=== PATIENT | male | born 1995 | race American Indian/Alaskan Native ===

== ENCOUNTER 2020-03-09 06:01 | Emergency (ER) | payer OTHER ==
[2020-03-09] MEDS ORDERED: SODIUM CHLORIDE 0.9% 1000 ML 1,000 ML IV ONE ×2 (06:11→07:35)
[2020-03-09] MEDS ORDERED: levETIRAcetam 1000 MG/NS 0.75% 1,000 MG/100 ML BAG IV ONE (06:12)
--- NOTE | 2020-03-09 06:14 | Emergency Department Report ---
ED General Adult HPI - General Stated complaint: SEIZURE Time Seen by Provider: 03/09/20 06:08 - History of Present Illness Initial comments: Patient is a 25-year-old male presents emergency department for evaluation of generalized tonic-clonic seizure this morning. Patient has history of seizure disorder for which she takes Keppra. Patient denies fever, denies shortness of breath cough, no sore throat, denies abdominal pain, denies nausea vomiting diarrhea. Patient denies drug use or misuse. Patient has had injury. Patient received 2.5 Versed intranasal in route. Patient notes he has been intermittently compliant with Keppra at home. - Related Data Home Medications Medication Instructions Recorded Confirmed Last Taken levETIRAcetam [Keppra TAB] 1,500 mg PO BID 03/09/20 03/09/20 Unknown Allergies Allergy/AdvReac Type Severity Reaction Status Date / Time Penicillins Allergy Anaphylaxis Verified 03/09/20 07:23 ED Review of Systems ROS: Stated complaint: SEIZURE Other details as noted in HPI Comment: All other systems reviewed and negative ED Past Medical Hx - Past Medical History Hx Seizures: Yes - Medications Home Medications: Home Medications Medication Instructions Recorded Confirmed Last Taken Type levETIRAcetam [Keppra TAB] 1,500 mg PO BID 03/09/20 03/09/20 Unknown History ED Physical Exam - General General appearance: alert, in no apparent distress - Head Head exam: Present: atraumatic, normocephalic - Eye Eye exam: Present: normal appearance - ENT ENT exam: Present: mucous membranes moist, other (1 cm macerated/superficial laceration to left lateral tongue) - Neck Neck exam: Present: normal inspection - Respiratory Respiratory exam: Present: normal lung sounds bilaterally. Absent: respiratory distress - Cardiovascular Cardiovascular Exam: Present: regular rate, normal rhythm. Absent: systolic murmur, diastolic murmur, rubs, gallop - GI/Abdominal GI/Abdominal exam: Present: soft, normal bowel sounds - Extremities Exam Extremities exam: Present: normal inspection - Back Exam Back exam: Present: normal inspection - Neurological Exam Neurological exam: Present: alert, oriented X3 - Psychiatric Psychiatric exam: Present: normal affect, normal mood - Skin Skin exam: Present: warm, dry, intact, normal color. Absent: rash ED Course Vital Signs 03/09/20 03/09/20 03/09/20 06:15 06:30 06:45 Pulse Rate Respiratory Rate Blood Pressure 113/41 113/41 Blood Pressure [Left] O2 Sat by Pulse 93 94 94 Oximetry 03/09/20 03/09/20 03/09/20 07:15 07:30 07:45 Pulse Rate Respiratory Rate Blood Pressure 87/36 89/38 108/66 Blood Pressure [Left] O2 Sat by Pulse 97 95 96 Oximetry 03/09/20 03/09/20 03/09/20 08:00 08:15 08:30 Pulse Rate Respiratory Rate Blood Pressure 108/64 109/65 111/66 Blood Pressure [Left] O2 Sat by Pulse 97 96 96 Oximetry 03/09/20 03/09/20 03/09/20 08:45 09:00 09:15 Pulse Rate Respiratory Rate Blood Pressure 110/66 108/64 118/71 Blood Pressure [Left] O2 Sat by Pulse 98 100 98 Oximetry 03/09/20 03/09/20 09:30 09:59 Pulse Rate 89 Respiratory 18 Rate Blood Pressure 117/71 Blood Pressure 119/69 [Left] O2 Sat by Pulse 98 Oximetry - Reevaluation(s) Reevaluation #1: 03/09/20 06:14 Patient initially treated with IV normal saline and IV Keppra. Reevaluation #2: 03/09/20 08:15 Tongue laceration repair not indicated ED Medical Decision Making - Lab Data Result diagrams: 03/09/20 06:39 03/09/20 06:39 Lab Results 03/09/20 03/09/20 03/09/20 Range/Units 06:39 06:39 10:11 WBC 25.4 H (4.5-11.0) K/mm3 RBC 4.72 (3.65-5.03) M/mm3 Hgb 14.3 (11.8-15.2) gm/dl Hct 43.8 (35.5-45.6) % MCV 93 (84-94) fl MCH 30 (28-32) pg MCHC 33 (32-34) % RDW 13.0 L (13.2-15.2) % Plt Count 422 (140-440) K/mm3 Lymph % (Auto) 19.0 (13.4-35.0) % [place] % (Auto) 3.3 (0.0-7.3) % Eos % (Auto) 0.8 (0.0-4.3) % Baso % (Auto) 0.3 (0.0-1.8) % Lymph # (Auto) 4.8 (1.2-5.4) K/mm3 [place] # (Auto) 0.8 (0.0-0.8) K/mm3 Eos # (Auto) 0.2 (0.0-0.4) K/mm3 Baso # (Auto) 0.1 (0.0-0.1) K/mm3 Seg Neutrophils % 76.6 H (40.0-70.0) % Seg Neutrophils # 19.4 H (1.8-7.7) K/mm3 Sodium 138 (137-145) mmol/L Potassium 4.3 (3.6-5.0) mmol/L Chloride 99.8 (98-107) mmol/L Carbon Dioxide 15 L (22-30) mmol/L Anion Gap 28 mmol/L BUN 13 (9-20) mg/dL Creatinine 1.3 (0.8-1.3) mg/dL Estimated GFR > 60 ml/min BUN/Creatinine Ratio 10 % Glucose 353 H (75-100) mg/dL POC Glucose 105 (70-105) mg/dL Calcium 9.1 (8.4-10.2) mg/dL Vital Signs 03/09/20 03/09/20 03/09/20 06:15 06:30 06:45 Pulse Rate Respiratory Rate Blood Pressure 113/41 113/41 Blood Pressure [Left] O2 Sat by Pulse 93 94 94 Oximetry 03/09/20 03/09/20 03/09/20 07:15 07:30 07:45 Pulse Rate Respiratory Rate Blood Pressure 87/36 89/38 108/66 Blood Pressure [Left] O2 Sat by Pulse 97 95 96 Oximetry 03/09/20 03/09/20 03/09/20 08:00 08:15 08:30 Pulse Rate Respiratory Rate Blood Pressure 108/64 109/65 111/66 Blood Pressure [Left] O2 Sat by Pulse 97 96 96 Oximetry 03/09/20 03/09/20 03/09/20 08:45 09:00 09:15 Pulse Rate Respiratory Rate Blood Pressure 110/66 108/64 118/71 Blood Pressure [Left] O2 Sat by Pulse 98 100 98 Oximetry 03/09/20 03/09/20 09:30 09:59 Pulse Rate 89 Respiratory 18 Rate Blood Pressure 117/71 Blood Pressure 119/69 [Left] O2 Sat by Pulse 98 Oximetry Critical care attestation.: If time is entered above; I have spent that time in minutes in the direct care of this critically ill patient, excluding procedure time. ED Disposition Clinical Impression: Seizure, Laceration of tongue, Hyperglycemia, Noncompliance with medication regimen Disposition: TO HOME OR SELFCARE Is pt being admited?: No Condition: Stable Instructions: Hyperglycemia, [id number], Mouth Laceration, [id number], Seizure, Adult Additional Instructions: Follow-up with PMD in 1-2 days for re-evaluation. Return to the ER for fever or worsening symptoms. Referrals: [facility]IJU WALKER [Other] - 3-5 Days
[2020-03-09 07:01] LABS: Hematocrit 43.8 % (35.5-45.6); Hemoglobin 14.3 gm/dl (11.8-15.2); Mean Corpuscular HGB Conc 33 % (32-34); Mean Corpuscular Volume 93 fl (84-94); Platelet Count 422 K/mm3 (140-440); Red Blood Count 4.72 M/mm3 (3.65-5.03)
[2020-03-09 07:03] LABS: Basophils # (Auto) 0.1 K/mm3 (0.0-0.1); Basophils % (Auto) 0.3 % (0.0-1.8); Eosinophils # (Auto) 0.2 K/mm3 (0.0-0.4); Eosinophils % (Auto) 0.8 % (0.0-4.3); Lymphocytes # (Auto) 4.8 K/mm3 (1.2-5.4); Monocytes # (Auto) 0.8 K/mm3 (0.0-0.8); Monocytes % (Auto) 3.3 % (0.0-7.3)
[2020-03-09 07:23] LABS: BUN/Creatinine Ratio 10; Blood Urea Nitrogen 13 mg/dL (9-20); Calcium 9.1 mg/dL (8.4-10.2); Hemolysis Index 10
[2020-03-09] MEDS ORDERED: METOPROLOL TARTRATE 5 MG/5 ML INJ IV ONE (07:38)
[2020-03-09] MEDS ORDERED: cloNIDine 0.1 MG TAB PO ONE (07:39)
[2020-03-09] MEDS ORDERED: LIDOCAINE 1%/EPINEPHRINE 1:100,000 VIAL (20 ML) INFILTRATI NR (08:00)
--- NOTE | 2020-03-09 09:22 | XRay Report ---
CHEST 1 VIEW 0730 INDICATION / CLINICAL INFORMATION: weakness COMPARISON: None available. FINDINGS: SUPPORT DEVICES: None HEART / MEDIASTINUM: No significant abnormality. LUNGS / PLEURA: No significant pulmonary or pleural abnormality. No pneumothorax. ADDITIONAL FINDINGS: No significant additional findings. IMPRESSION: No significant acute abnormality Signer Name: Felipe Serrano MD Signed: 03/09/2020 9:17 AM Workstation Name: [id number]
[2020-03-09 11:12] VITALS: BP 118/65
== END 2020-03-09 11:12 | disposition home or self-care (01) ==
LOC: EDSEX → ED 06:01
DX: S01.512A Laceration without foreign body of oral cavity, initial encounter (principal); G40.909 Epilepsy, unspecified, not intractable, without status epilepticus; R73.9 Hyperglycemia, unspecified; Z91.14 Patient's other noncompliance with medication regimen; Z88.0 Allergy status to penicillin; X58.XXXA Exposure to other specified factors, initial encounter; Y93.89 Activity, other specified; Y92.89 Other specified places as the place of occurrence of the external cause; Y99.8 Other external cause status
CPT/HCPCS: 36415; 71045; 80048; 82962; 85025; 96361; 96365; 99284; J1953; J7030

== ENCOUNTER 2020-03-17 02:42 | Emergency (ER) | payer OTHER ==
[2020-03-17] MEDS ORDERED: SODIUM CHLORIDE 0.9% 1000 ML 1,000 ML IV ONE (03:38)
[2020-03-17 04:19] LABS: Alanine Aminotransferase 144 units/L (7-56); Albumin 4.2 g/dL (3.9-5); BUN/Creatinine Ratio 8; Blood Urea Nitrogen 12 mg/dL (9-20); Calcium 9.6 mg/dL (8.4-10.2); Hemolysis Index 7
--- NOTE | 2020-03-17 05:06 | Emergency Department Report ---
ED Seizure HPI - General Chief Complaint: Seizure Stated Complaint: SEIZURE Time Seen by Provider: 03/17/20 03:37 Source: patient, EMS Mode of arrival: Stretcher Limitations: No Limitations - History of Present Illness MD Complaint: seizure -: Gradual, Sudden Description of Episode: loss of consciousness, tonic-clonic movement -: minutes(s) (2) Witnessed:: Yes Trauma: No Seizure History: known seizure disorder Place: home Possible Precipitating Event: none Associated Symptoms: denies other symptoms Treatments Prior to Arrival: benzodiazepines - Related Data Home Medications Medication Instructions Recorded Confirmed Last Taken levETIRAcetam [Keppra TAB] 1,500 mg PO BID 03/09/20 03/09/20 Unknown Allergies Allergy/AdvReac Type Severity Reaction Status Date / Time Penicillins Allergy Anaphylaxis Verified 03/09/20 07:23 shellfish derived Allergy Anaphylaxis Verified 03/17/20 03:46 ED Review of Systems ROS: Stated complaint: SEIZURE Other details as noted in HPI Constitutional: denies: chills, fever Eyes: denies: eye pain, eye discharge, vision change ENT: denies: ear pain, throat pain Respiratory: denies: cough, shortness of breath, wheezing Cardiovascular: denies: chest pain, palpitations Endocrine: no symptoms reported Gastrointestinal: denies: abdominal pain, nausea, diarrhea Genitourinary: denies: urgency, dysuria Musculoskeletal: denies: back pain, joint swelling, arthralgia Skin: denies: rash, lesions Neurological: denies: headache, weakness, paresthesias Psychiatric: denies: anxiety, depression Hematological/Lymphatic: denies: easy bleeding, easy bruising ED Past Medical Hx - Past Medical History Previous Medical History?: Yes Hx Seizures: Yes - Social History Smoking Status: Current Some Day Smoker - Medications Home Medications: Home Medications Medication Instructions Recorded Confirmed Last Taken Type levETIRAcetam [Keppra TAB] 1,500 mg PO BID 03/09/20 03/09/20 Unknown History ED Physical Exam - General Limitations: No Limitations General appearance: alert, in no apparent distress - Head Head exam: Present: atraumatic, normocephalic - Eye Eye exam: Present: normal appearance - ENT ENT exam: Present: mucous membranes moist - Neck Neck exam: Present: normal inspection - Respiratory Respiratory exam: Present: normal lung sounds bilaterally. Absent: respiratory distress - Cardiovascular Cardiovascular Exam: Present: regular rate, normal rhythm. Absent: systolic murmur, diastolic murmur, rubs, gallop - GI/Abdominal GI/Abdominal exam: Present: soft, normal bowel sounds - Rectal Rectal exam: Present: deferred - Extremities Exam Extremities exam: Present: normal inspection - Back Exam Back exam: Present: normal inspection - Neurological Exam Neurological exam: Present: alert, oriented X3 - Psychiatric Psychiatric exam: Present: normal affect, normal mood - Skin Skin exam: Present: warm, dry, intact, normal color. Absent: rash ED Course Vital Signs 03/17/20 03:35 Temperature 97.4 F L Pulse Rate 131 H Respiratory 14 Rate Blood Pressure 130/80 O2 Sat by Pulse 97 Oximetry ED Medical Decision Making - Lab Data Result diagrams: 03/17/20 03:49 - Medical Decision Making OBS IN ER, NO NEW SEIZURES, ALERT, ORIENTED, WANTS TO GO HOME. - Differential Diagnosis SEIZURE D/O Critical care attestation.: If time is entered above; I have spent that time in minutes in the direct care of this critically ill patient, excluding procedure time. ED Disposition Clinical Impression: Seizure Disposition: DC-01 TO HOME OR SELFCARE Is pt being admited?: No Does the pt Need Aspirin: No Condition: Stable Referrals: [facility]U WALKER [Other] - 3-5 Days
[2020-03-17 05:11] VITALS: BP 114/74
== END 2020-03-17 06:00 | disposition home or self-care (01) ==
LOC: ED 02:42
DX: G40.909 Epilepsy, unspecified, not intractable, without status epilepticus (principal); F17.200 Nicotine dependence, unspecified, uncomplicated; Z79.899 Other long term (current) drug therapy; Z88.0 Allergy status to penicillin; Z91.013 Allergy to seafood
CPT/HCPCS: 80053; 80320; 82962; 96360; G0480

== ENCOUNTER 2020-03-28 10:46 | Emergency (ER) | payer OTHER ==
--- NOTE | 2020-03-28 12:56 | Event Note ---
ED Screening Note ED Screening Note: 25-year-old male that presents with seizure. Patient stated has past medical history of seizure. This initial assessment/diagnostic orders/clinical plan/treatment(s) is/are subject to change based on patients health status, clinical progression and re- assessment by fellow clinical providers in the ED. Further treatment and workup at subsequent clinical providers discretion. Patient/guardian urged not to elope from the ED as their condition may be serious if not clinically assessed and managed. Initial orders include: Labs UA
[2020-03-28 14:33] LABS: Hematocrit 39.3 % (35.5-45.6); Hemoglobin 13.2 gm/dl (11.8-15.2); Mean Corpuscular HGB Conc 34 % (32-34); Mean Corpuscular Volume 89 fl (84-94); Platelet Count 283 K/mm3 (140-440); Red Blood Count 4.43 M/mm3 (3.65-5.03); Red Cell Distribution Width 13.4 % (13.2-15.2)
[2020-03-28 14:41] LABS: Basophils # (Auto) 0.1 K/mm3 (0.0-0.1); Basophils % (Auto) 0.7 % (0.0-1.8); Eosinophils % (Auto) 0.5 % (0.0-4.3); Lymphocytes # (Auto) 1.5 K/mm3 (1.2-5.4); Lymphocytes % (Auto) 20.6 % (13.4-35.0); Monocytes # (Auto) 0.4 K/mm3 (0.0-0.8); Monocytes % (Auto) 5.5 % (0.0-7.3)
[2020-03-28 14:54] LABS: Alanine Aminotransferase 97 units/L (7-56); Albumin 4.6 g/dL (3.9-5); BUN/Creatinine Ratio 7; Blood Urea Nitrogen 6 mg/dL (9-20); Calcium 9.8 mg/dL (8.4-10.2); Hemolysis Index 0
[2020-03-28 18:46] VITALS: BP 166/116
== END 2020-03-28 22:15 | disposition left against medical advice (07) ==
LOC: ED 10:46
DX: R56.9 Unspecified convulsions (principal); Z53.21 Procedure and treatment not carried out due to patient leaving prior to being seen by health care provider
CPT/HCPCS: 36415; 80053; 80320; 85025; G0480